=== PATIENT | male | born 1980 | race Caucasian/White ===

== ENCOUNTER 2024-05-12 20:47 | Emergency (ER) | payer SELFPAY ==
[2024-05-12] MEDS ORDERED: ONDANSETRON 4 MG/2 ML VIAL ONE (22:20)
[2024-05-12] MEDS ORDERED: NA CHLORIDE 0.9% 1,000 ML ONE (22:20)
[2024-05-12 23:30] LABS: Specific Gravity 1.029 (1.005-1.030); Sqamous Epithelial <5 /HPF (None Seen); Urine Bacteria <20 /HPF (<20); Urine Bilirubin NEGATIVE (Negative); Urine Blood Negative (Negative); Urine Clarity Extremely Turbid (Clear); Urine Color Yellow (Yellow); Urine Crystals Unidentified Moderate /HPF (None Seen); Urine Culture Reflex Order NOT NEEDED; Urine Glucose NEGATIVE (Negative); Urine Ketones NEGATIVE (Negative); Urine Micro Reflex YN NO BILL MICROSCOPIC; Urine Mucus 2+ /HPF (None Seen); Urine Nitrite NEGATIVE (Negative); Urine Protein 1+ (Negative); Urine Urobilinogen Normal (Normal); Urine WBC <5 /HPF (<5)
[2024-05-12 23:39] LABS: Barbiturates NEGATIVE (NEGATIVE); Benzodiazepines NEGATIVE (NEGATIVE); Cocaine NEGATIVE (NEGATIVE); METHAMPHETAM POSITIVE (NEGATIVE); Methadone NEGATIVE (NEGATIVE); Opiates NEGATIVE (NEGATIVE); Phencyclidine NEGATIVE (NEGATIVE); THC Cannibis POSITIVE (NEGATIVE)
[2024-05-12 23:59] LABS: ALT/SGPT 28 U/L (16-61); AST/SGOT 21 U/L (15-37); Albumin 3.7 g/dL (3.4-5.0); Albumin/Globulin Ratio 0.7 (1.1-1.8); Alkaline Phosphatase 97 U/L (45-117); Anion Gap 7.2 mEq/L (5.0-15.0); BUN Blood Urea Nitrogen 15 mg/dL (7-18); Bicarbonate 29 mEq/L (21-32); Bilirubin Total 0.3 mg/dL (0.2-1.0); Glomerular Filtration Rate 111 ml/min (=/>90); Glucose Level 77 mg/dL (74-106); Potassium 4.2 mEq/L (3.5-5.1); Protein, Total 8.7 g/dL (6.4-8.2); Sodium Level 136 mEq/L (136-145)
[2024-05-13] LABS: Bilirubin Direct < 0.2 mg/dL (0-0.2); Bilirubin Indirect, Calculated 0.1 mg/dL (0.2-0.8)
[2024-05-13 00:08] LABS: Absolute Basophils 0.1 K/uL (0-0.5); Absolute Eosinophils 0.2 K/uL (0-0.5); Absolute Lymphocytes (CBC) 1.3 K/uL (0.7-4.9); Absolute Monocytes 0.7 K/uL (0.1-1.3); Absolute Neutrophil 3.1 K/uL (1.8-8.0); Eosinophils % 3.1 % (0-4.4); Hematocrit 34.2 % (39.6-49.0); Hemoglobin 11.6 g/dL (13.6-17.9); MCH 29.2 pg (27.0-35.0); MCHC 33.8 g/dL (32.0-36.0); MCV 86.1 fL (80-100); MPV 7.3 fL (7.6-11.3); Monocytes % 12.6 % (3.3-12.3); Neutrophils % 59.3 % (41.7-73.7); Nucleated Red Blood Cells % 0.1 % (0-0); Platelets 297 thou/uL (152-406); RBC Red Blood Cell Count 3.97 M/uL (4.33-5.43); Red Cell Distribution Width 12.8 % (12.1-15.2)
--- NOTE | 2024-05-13 03:08 | EDPHYS ---
Physician Documentation [facility] Name: Zeb Lopez Age: 43 yrs Sex: Male : 1980 Arrival Date: 05/12/2024 Time: 20:47 Bed 8 Private MD: ED Physician Bora Pereira HPI: 05/12 21:09 This 43 yrs old Male presents to ER via Unassigned with complaints of Urinary sp4 Retention. 05/13 21:30 43-year-old male presents with complaint of urinary difficulty associated with pelvic sp4 discomfort associated with vomiting. Patient states it has been there for several days. 21:31 Also reports a discomfort in the penile foreskin with redness swelling and inability to sp4 pull foreskin back over the head of penis . Historical: - Allergies: 05/12 21:31 No Known Allergies; me1 - PMHx: 21:31 None; me1 - PSHx: 21:31 Exploratory laparotomy; me1 - Immunization history:: Adult Immunizations up to date. - Infectious Disease History:: Denies. - Social history:: Smoking status: Patient reports the use of cigarette tobacco products, smokes one-half pack cigarettes per day. - Family history:: not pertinent. ROS: 05/13 21:31 Constitutional: Negative for fever, chills, and weight loss, dysuria, positive penile sp4 foreskin swelling, positive pelvic discomfort, positive nausea vomiting All other systems are negative, Exam: 21:31 Constitutional: This is a well developed, well nourished patient who is awake, alert, sp4 and in no acute distress. Heavily tattooed individual Head/Face: Normocephalic, atraumatic. Eyes: Pupils equal round and reactive to light, extra-ocular motions intact. Lids and lashes normal. Conjunctiva and sclera are not injected. Cornea within normal limits. Periorbital areas with no swelling, redness, or edema. ENT: Nares patent. No nasal discharge, no septal abnormalities noted. Tympanic membranes are normal and external auditory canals are clear. Oropharynx with no redness, swelling, or masses, exudates, or evidence of obstruction, uvula midline. Mucous membranes moist. Neck: Trachea midline, no thyromegaly or masses palpated, and no cervical lymphadenopathy. Supple, full range of motion without nuchal rigidity, or vertebral point tenderness. Chest/axilla: Normal chest wall appearance and motion. Nontender with no deformity. No lesions are appreciated. Cardiovascular: Regular rate and rhythm with a normal S1 and S2. No gallops, murmurs, or rubs. Normal PMI, no JVD. No pulse deficits. Respiratory: Lungs have equal breath sounds bilaterally, clear to auscultation and percussion. No rales, rhonchi or wheezes noted. No increased work of breathing, no retractions or nasal flaring. Abdomen/GI: Soft, with normal bowel sounds. No distension or tympany. No guarding or rebound. No evidence of tenderness throughout. Back: No spinal tenderness. No costovertebral tenderness. Male : Normal genitalia with no discharge or lesions. Is uncircumcised male with some degree of penile foreskin swelling and redness. Consistent with balanitis and mild degree of phimosis Skin: Warm, dry with normal turgor. Normal color with no rashes, no lesions, and no evidence of cellulitis. MS/ Extremity: Pulses equal, no cyanosis. Neurovascular intact. Full, normal range of motion. Neuro: Awake and alert, GCS 15, oriented to person, place, time, and situation. Cranial nerves II-XII grossly intact. Motor strength 5/5 in all extremities. Sensory grossly intact. Psych: Awake, alert, with orientation to person, place and time. Behavior, mood, and affect are within normal limits Vital Signs: 05/12 21:29 BP 109 / 82; Pulse 113; Resp 17; Temp 98.5; Pulse Ox 98% ; Weight 68.04 kg; Height 5 me1 ft. 9 in. ; Pain 6/10; 23:11 BP 114 / 71; Pulse 99; Resp 18; Temp 98.5; Pulse Ox 100% ; Pain 3/10; bm8 05 00:29 BP 108 / 72; Pulse 92; Resp 16; Temp 98.5; Pulse Ox 100% ; Pain 3/10; bm8 02:09 BP 110 / 74; Pulse 86; Resp 17; Temp 98.5; Pulse Ox 100% ; Pain 0/10; bm8 03:19 BP 112 / 75; Pulse 84; Resp 17; Temp 98.5; Pulse Ox 100% ; Pain 0/10; bm8 05/12 21:29 Body Mass Index 22.15 (68.04 kg, 175.26 cm) me1 05/12 21:29 Pain Scale: Adult me1 23:11 Pain Scale: Adult bm8 05/13 00:29 Pain Scale: Adult bm8 02:09 Pain Scale: Adult bm8 03:19 Pain Scale: Adult bm8 [place] Score: 05/12 23:11 Eye Response: spontaneous(4). Motor Response: obeys commands(6). Verbal Response: bm8 oriented(5). Total: 15. 05/13 00:29 Eye Response: spontaneous(4). Motor Response: obeys commands(6). Verbal Response: bm8 oriented(5). Total: 15. 02:09 Eye Response: spontaneous(4). Motor Response: obeys commands(6). Verbal Response: bm8 oriented(5). Total: 15. 03:19 Eye Response: spontaneous(4). Motor Response: obeys commands(6). Verbal Response: bm8 oriented(5). Total: 15. 21:31 Eye Response: spontaneous(4). Motor Response: obeys commands(6). Verbal Response: sp4 oriented(5). Total: 15. MDM: 05/12 21:23 Medical Screening Exam initiated sp4 05/13 03:00 ED course: EXAM DESCRIPTION: Abdomen Pelvis W Contrast CLINICAL HISTORY: ABD PAIN sp4 COMPARISON: None Available. TECHNIQUE: CT of the abdomen and pelvis performed following the administration of IV contrast. No oral contrast. This exam was performed according to our departmental dose-optimization program, which includes automated exposure control, adjustment of the mA and/or kV according to patient size and/or use of iterative reconstruction technique. FINDINGS: Lung Bases: Minimal atelectasis or scarring in the lung bases. Abdomen: Liver: Normal contour. There is some mild focal hypodensity in hepatic segment 4 which could be due to focal fatty infiltration. No definite suspicious liver lesion identified Gallbladder: No calcified gallstones. No significant biliary dilatation. Spleen, Pancreas, and Adrenal Glands: The spleen, pancreas, and adrenal glands are unremarkable. Kidneys: No suspicious mass. Punctate bilateral nonobstructing renal calculi. No distal obstructing calculus. No hydronephrosis. Vasculature: The aorta and IVC have normal caliber and position. The portal vein is patent. The proximal visceral and renal arteries are patent. Stomach: The stomach and duodenum have normal course. Other: No free intraperitoneal air. No fluid collection. Pelvis: Bladder: Diffuse bladder wall thickening. Bowel: Moderate to large amount of stool in the colon. A few mildly prominent fluid-filled small bowel loops in the pelvis. Appendix: Normal appendix. Pelvis: Prostate gland is not enlarged. Nonspecific subcutaneous stranding/nodularity medial right buttocks. No soft tissue gas. There is a mildly enlarged left inguinal measuring 2.2 x 1.4 cm. Bones: No destructive bone lesions identified. IMPRESSION: 1. Diffuse bladder wall thickening. Correlate with urinalysis for possible cystitis. 2. Moderate to large amount of stool in the colon. 3. Mildly enlarged left inguinal lymph node. 4. Nonspecific subcutaneous stranding/nodularity in the medial right buttocks. Correlate with any history of trauma or infection. . 21:31 Differential diagnosis: nonspecific abdominal pain, appendicitis, UTI, urinary sp4 retention, prostatitis, urethritis. Data reviewed: vital signs, nurses notes, lab test result(s), radiologic studies, CT scan. Consideration of Admission/Observation Escalation of care including admission/observation considered. ED course: Improved after medications. With respect to [place] prosthesis will prescribe Bactrim, ibuprofen, and fluconazole. Advised gentle cleansing with running water and shower. 05/12 22:05 Order name: Basic Metabolic Panel; Complete Time: 00:31 4 05/12 22:05 Order name: CBC with Diff; Complete Time: 00:31 4 05/12 22:05 Order name: LFT's; Complete Time: 00: 4 05/12 22:05 Order name: Urinalysis W/Microscopic; Complete Time: 00:31 sp4 05/12 22:05 Order name: Urine Drug Screen; Complete Time: 00:31 4 05/12 22:05 Order name: CT Abd/Pelvis - IV Contrast Only 4 05/12 22:05 Order name: IV Saline Lock; Complete Time: 23:00 4 05/12 22:05 Order name: Labs collected and sent; Complete Time: 23:00 sp4 Administered Medications: 05/12 23:10 Drug: NS 0.9% IV 1000 ml IV at 1 bolus Per protocol; to be given as a bolus over 60 bm8 minutes Route: IV; Rate: 1 bolus; Site: left forearm; 23:59 Follow up: Response: No adverse reaction; IV Status: Completed infusion; IV Intake: bm8 1000ml 23:10 Drug: Ondansetron IVP 4 mg IVP once; over 2 minutes Route: IVP; Site: left forearm; bm8 23:59 Follow up: Response: No adverse reaction 8 05/13 03:18 Drug: Fluconazole PO 200 mg PO once Route: PO; bm8 03:19 Follow up: Response: Medication Administered at Departure bm8 03:18 Drug: Ibuprofen PO 800 mg PO once Route: PO; bm8 03:19 Follow up: Response: Medication Administered at Departure 8 03:18 Drug: Trimethoprim-Sulfamethoxazole PO (160 mg-800 mg (DS) 1 tablet PO once Route: PO; bm8 03:18 Follow up: Response: Medication Administered at Departure bm8 Disposition Summary: 05/13/24 03:07 Discharge Ordered Notes: Location: Home sp4 Problem: new sp4 Symptoms: have improved sp4 Condition: Stable sp4 Diagnosis - Acute balanitis, acute cystitis, acute dysuria, moderate constipation sp4 Followup: sp4 - With: Jacob Lane MD - When: 7 - 10 days - Reason: Recheck today's complaints Discharge Instructions: - Discharge Summary Sheet sp4 - Balanitis sp4 Forms: - Patient Portal Instructions sp4 Prescriptions: - Ibuprofen 800 mg Oral Tablet - take 1 tablet ORAL route every 8 hours As needed take with food; 30 tablet; sp4 Refills: 0, Product Selection Permitted - Fluconazole 200 mg Oral tablet - take 1 tablet ORAL route once daily for 10 days; 10 tablet; Refills: 0, Product sp4 Selection Permitted - Bactrim DS 800-160 mg Oral Tablet - take 1 tablet ORAL route every 12 hours for 10 days; 20 tablet; Refills: 0, sp4 Product Selection Permitted - ondansetron 8 mg Oral Tablet,disintegrating - take 1 tablet ORAL route every 8 hours PRN nausea; 30 tablet; Refills: 0, sp4 Product Selection Permitted Signatures: Dispatcher [employer] Bora Soto MD MD sp4 Nicki Mahan, RN RN nd1 Colton Thomas RN RN bm8
--- NOTE | 2024-05-13 03:08 | ER ---
Nurse's Notes [facility] Name: Zeb Lopez Age: 43 yrs Sex: Male : 1980 Arrival Date: 05/12/2024 Time: 20:47 Bed 8 Private MD: Diagnosis: Acute balanitis, acute cystitis, acute dysuria, moderate constipation Presentation: 05/12 21:29 Chief complaint: Patient states: LLQ abdominal pain, difficulty urinating that is worse me1 in the mornings. Some discomfort when urinating. c/o n/v. Coronavirus screen: Vaccine status: Patient reports being unvaccinated. Ebola Screen: No symptoms or risks identified at this time. Initial Sepsis Screen: Does the patient meet any 2 criteria? HR > 90 bpm. Risk Assessment: Do you want to hurt yourself or someone else? Patient reports no desire to harm self or others. Onset of symptoms is unknown. 21:29 Method Of Arrival: [place] [facility] 21:29 Acuity: OLEKSANDR 3 me1 05/13 03:21 Initial Sepsis Screen: Does the patient have a suspected source of infection? No. bm8 Patient's initial sepsis screen is negative. Historical: - Allergies: 05/12 21:31 No Known Allergies; me1 - PMHx: 21:31 None; me1 - PSHx: 21:31 Exploratory laparotomy; me1 - Immunization history:: Adult Immunizations up to date. - Infectious Disease History:: Denies. - Social history:: Smoking status: Patient reports the use of cigarette tobacco products, smokes one-half pack cigarettes per day. - Family history:: not pertinent. Screenin:11 [facility] ED Fall Risk Assessment (Adult) History of falling in the last 3 months, bm8 including since admission No falls in past 3 months (0 pts) Confusion or Disorientation No (0 pts) Intoxicated or Sedated No (0 pts) Impaired Gait No (0 pts) Mobility Assist Device Used No (0 pt) Altered Elimination No (0 pt) Score/Fall Risk Level 0 - 2 = Low Risk Oriented to surroundings, Maintained a safe environment, Educated pt \\T\\ family on fall prevention, incl call for assistance when getting out of bed, Assessed \\T\\ reinforced patient's understanding of fall precautions, Hourly rounding (assess needs \\T\\ fall precautionary measures) done, Used ambulatory aids as needed (educated on \\T\\ assisted with), Used gait belt as appropriate. Abuse screen: Denies threats or abuse. Nutritional screening: No deficits noted. Tuberculosis screening: No symptoms or risk factors identified. Assessment: 23:11 Reassessment: Patient appears in no apparent distress at this time. Patient and/or bm8 family updated on plan of care and expected duration. Pain level reassessed. Patient is alert, oriented x 3, equal unlabored respirations, skin warm/dry/pink. General: Appears in no apparent distress. comfortable, Behavior is calm, cooperative, appropriate for age. Pain: Complains of pain in groin and left femoral area Pain currently is 3 out of 10 on a pain scale. Neuro: No deficits noted. Level of Consciousness is awake, alert, obeys commands, Oriented to person, place, time, situation, Appropriate for age. Cardiovascular: Denies chest pain. Respiratory: Airway is patent Trachea midline Respiratory effort is even, unlabored, Respiratory pattern is regular, symmetrical. GI: No signs and/or symptoms were reported involving the gastrointestinal system. : Urine is clear, Reports incomplete urine retention, " does feel like I am completely emptying especially at night. EENT: No signs and/or symptoms were reported regarding the EENT system. Derm: No signs and/or symptoms reported regarding the dermatologic system. 05/13 00:29 Reassessment: Patient appears in no apparent distress at this time. No changes from bm8 previously documented assessment. Patient and/or family updated on plan of care and expected duration. Pain level reassessed. Patient is alert, oriented x 3, equal unlabored respirations, skin warm/dry/pink. Patient states feeling better. 02:09 Reassessment: Patient appears in no apparent distress at this time. Patient and/or bm8 family updated on plan of care and expected duration. Pain level reassessed. Patient is alert, oriented x 3, equal unlabored respirations, skin warm/dry/pink. Patient denies pain at this time. Patient states feeling better. Patient states symptoms have improved. 03:19 Reassessment: Patient appears in no apparent distress at this time. Patient and/or bm8 family updated on plan of care and expected duration. Pain level reassessed. Patient is alert, oriented x 3, equal unlabored respirations, skin warm/dry/pink. Patient denies pain at this time. Patient states feeling better. Patient states symptoms have improved. Vital Signs: 05/12 21:29 BP 109 / 82; Pulse 113; Resp 17; Temp 98.5; Pulse Ox 98% ; Weight 68.04 kg; Height 5 me1 ft. 9 in. ; Pain 6/10; 23:11 BP 114 / 71; Pulse 99; Resp 18; Temp 98.5; Pulse Ox 100% ; Pain 3/10; bm8 05/13 00:29 BP 108 / 72; Pulse 92; Resp 16; Temp 98.5; Pulse Ox 100% ; Pain 3/10; bm8 02:09 BP 110 / 74; Pulse 86; Resp 17; Temp 98.5; Pulse Ox 100% ; Pain 0/10; bm8 03:19 BP 112 / 75; Pulse 84; Resp 17; Temp 98.5; Pulse Ox 100% ; Pain 0/10; bm8 05/12 21:29 Body Mass Index 22.15 (68.04 kg, 175.26 cm) [facility] 05/12 21:29 Pain Scale: Adult me1 23:11 Pain Scale: Adult bm8 05/13 00:29 Pain Scale: Adult bm8 02:09 Pain Scale: Adult bm8 03:19 Pain Scale: Adult bm8 [place] Coma Score: 05/12 23:11 Eye Response: spontaneous(4). Motor Response: obeys commands(6). Verbal Response: bm8 oriented(5). Total: 15. 05 00:29 Eye Response: spontaneous(4). Motor Response: obeys commands(6). Verbal Response: bm8 oriented(5). Total: 15. 02:09 Eye Response: spontaneous(4). Motor Response: obeys commands(6). Verbal Response: bm8 oriented(5). Total: 15. 03:19 Eye Response: spontaneous(4). Motor Response: obeys commands(6). Verbal Response: bm8 oriented(5). Total: 15. 21:31 Eye Response: spontaneous(4). Motor Response: obeys commands(6). Verbal Response: sp4 oriented(5). Total: 15. ED Course: 05/12 20:55 Patient arrived in ED. [id number] 21:09 Bora Pereira MD is Attending Physician. sp4 21:31 Triage completed. me1 21:31 Arm band placed on Patient placed in waiting room. me1 22:15 Colton Thomas, RN is Primary Nurse. bm8 23:10 No provider procedures requiring assistance completed. Initial lab(s) drawn, by marii grubbs sent to lab. Urine collected: clean catch specimen, clear. Inserted saline lock: 20 gauge in left forearm, using aseptic technique. Blood collected. Flushed with 10 mL NS. Patient maintains SpO2 saturation greater than 95% on room air. 23:11 Patient has correct armband on for positive identification. Placed in gown. Bed in low bm8 position. Call light in reach. Side rails up X 1. Client placed on continuous cardiac and pulse oximetry monitoring. NIBP monitoring applied. Pulse ox on. NIBP on. Door closed. Noise minimized. Warm blanket given. Pillow given. Verbal reassurance given. Head of bed elevated. 05/13 00:38 CT Abd/Pelvis - IV Contrast Only In Process Unspecified. EDMS 03:[address] MD is Referral Physician. sp4 03:19 Provided Education on: post er care. bm8 03:19 IV discontinued, intact, bleeding controlled, No redness/swelling at site. Pressure bm8 dressing applied. Administered Medications: 05/12 23:10 Drug: NS 0.9% IV 1000 ml IV at 1 bolus Per protocol; to be given as a bolus over 60 bm8 minutes Route: IV; Rate: 1 bolus; Site: left forearm; 23:59 Follow up: Response: No adverse reaction; IV Status: Completed infusion; IV Intake: bm8 1000ml 23:10 Drug: Ondansetron IVP 4 mg IVP once; over 2 minutes Route: IVP; Site: left forearm; bm8 23:59 Follow up: Response: No adverse reaction bm8 05/13 03:18 Drug: Fluconazole PO 200 mg PO once Route: PO; bm8 03:19 Follow up: Response: Medication Administered at Departure bm8 03:18 Drug: Ibuprofen PO 800 mg PO once Route: PO; bm8 03:19 Follow up: Response: Medication Administered at Departure bm8 03:18 Drug: Trimethoprim-Sulfamethoxazole PO (160 mg-800 mg (DS) 1 tablet PO once Route: PO; bm8 03:18 Follow up: Response: Medication Administered at Departure bm8 Medication: 05/12 23:11 VIS not applicable for this client. bm8 Intake: 23:59 IV: 1000ml; Total: 1000ml. bm8 Outcome: 05/13 03:07 Discharge ordered by . sp4 03:19 Discharged to home ambulatory, bm8 03:19 Condition: stable 03:19 Discharge instructions given to patient, family, Instructed on discharge instructions, follow up and referral plans. no drinking with medication, no driving heavy equipment, medication usage, safety practices, Demonstrated understanding of instructions, follow-up care, medications, Prescriptions given X 4, 03:21 Patient left the ED. bm8 Signatures: Dispatcher [employer] EDMS Sbaine Sauer [id number] Bora Pereira MD MD sp4 Nicki Mahan, ISAIAH RN me1 Colton Thomas RN RN bm8
--- NOTE | 2024-05-13 03:12 | RAD REPORT ---
EXAM DESCRIPTION: Abdomen Pelvis W Contrast CLINICAL HISTORY: ABD PAIN COMPARISON: None Available. TECHNIQUE: CT of the abdomen and pelvis performed following the administration of IV contrast. No ora l contrast. This exam was performed according to our departmental dose-optimization program, which includes automated exposure control, adjustment of the mA and/or kV according to patient size and/or use of iterative reconstruction technique. FINDINGS: Lung Bases: Minimal atelectasis or scarring in the lung bases. Abdomen: Liver: Normal contour. There is some mild focal hypodensity in hepatic segment 4 which could be due t o focal fatty infiltration. No definite suspicious liver lesion identified Gallbladder: No calcified gallstones. No significant biliary dilatation. Spleen, Pancreas, and Adrenal Glands: The spleen, pancreas, and adrenal glands are unremarkable. Kidneys: No suspicious mass. Punctate bilateral nonobstructing renal calculi. No distal obstructi ng calculus. No hydronephrosis. Vasculature: The aorta and IVC have normal caliber and position. The portal vein is patent. The pro ximal visceral and renal arteries are patent. Stomach: The stomach and duodenum have normal course. Other: No free intraperitoneal air. No fluid collection. Pelvis: Bladder: Diffuse bladder wall thickening. Bowel: Moderate to large amount of stool in the colon. A few mildly prominent fluid-filled small sami wel loops in the pelvis. Appendix: Normal appendix. Pelvis: Prostate gland is not enlarged. Nonspecific subcutaneous stranding/nodularity medial right bu ttocks. No soft tissue gas. There is a mildly enlarged left inguinal measuring 2.2 x 1.4 cm. Bones: No destructive bone lesions identified. IMPRESSION: 1. Diffuse bladder wall thickening. Correlate with urinalysis for possible cystitis. 2. Moderate to large amount of stool in the colon. 3. Mildly enlarged left inguinal lymph node. 4. Nonspecific subcutaneous stranding/nodularity in the medial right buttocks. Correlate with any h istory of trauma or infection. Electronically signed by: Karis Nieves MD 05/13/2024 02:56 AM [facility] Due to temporary technical issues with the PACS/TM3 Software reporting system, reports are being atif d by the in-house radiologist without review as a courtesy to ensure prompt reporting the interpreting radiologist is fully responsible for the content of the report. Transcribed Date/Time: 05/13/2024 3:11 AM
[2024-05-13] MEDS ORDERED: IBUPROFEN 400 MG TAB ONE (03:14)
[2024-05-13] MEDS ORDERED: SMZ./TMP. 800/160 MG TABLET ONE (03:14)
[2024-05-13] MEDS ORDERED: FLUCONAZOLE 100 MG TAB ONE (03:14)
[2024-05-13 03:35] VITALS: TEMP 98.5
[2024-05-13 03:41] VITALS: O2SAT 100
[2024-05-13 03:50] VITALS: BP 112/75
== END 2024-05-13 03:21 | disposition home or self-care (01) ==
LOC: ER 20:47
DX: N48.1 Balanitis (principal); N30.00 Acute cystitis without hematuria; K59.00 Constipation, unspecified; F17.210 Nicotine dependence, cigarettes, uncomplicated
CPT/HCPCS: 36415; 74177; 80048; 80076; 80307; 81001; 85025; J2405; J7030; Q9967